=== PATIENT | male | born 1985 | race Caucasian/White ===

== ENCOUNTER 2019-09-30 09:58 | Day surgery (SDC) | payer OTHER ==
[~2019-09-30] VITALS: Ht 188 cm; Wt 118.7 kg
[~2019-09-30 09:58] MED LIST: None at this Time
[2019-09-30 10:27] VITALS: BP 141/94
[2019-09-30] MEDS ORDERED: LACTATED RINGERS 1,000 ML IV SCH ×2 (10:29→13:33)
[2019-09-30] MEDS ORDERED: GABAPENTIN 300 MG CAPSULE PO ONE (11:00)
[2019-09-30] MEDS ORDERED: ACETAMINOPHEN 500 MG TABLET PO ONE (11:00)
[2019-09-30] MEDS ORDERED: FENTANYL PF 250 MCG/5ML ONE (11:24)
[2019-09-30] MEDS ORDERED: MIDAZOLAM 1 MG/ML, 2ML ONE (11:24)
[2019-09-30] MEDS ORDERED: BUPIVACAINE/PF 0.5% INFIL ONE (12:44)
[2019-09-30] MEDS ORDERED: PROPOFOL 10 MG/ML, 20ML ONE (12:52)
[2019-09-30] MEDS ORDERED: CEFAZOLIN 1,000 MG ONE (12:52)
[2019-09-30] MEDS ORDERED: LIDOCAINE-MPF 2% ,5ML ONE (12:52)
[2019-09-30] MEDS ORDERED: DEXAMETHASONE 4 MG/ML, 1ML ONE (12:52)
[2019-09-30] MEDS ORDERED: KETOROLAC 30 MG/1 ML ONE (12:52)
[2019-09-30] MEDS ORDERED: ONDANSETRON 2MG/ML, 2ML ONE (12:52)
[2019-09-30] MEDS ORDERED: METOPROLOL 1 MG/ML, 5ML IV PRN (13:00)
[2019-09-30] MEDS ORDERED: PROMETHAZINE 25 MG/ML, 1ML IV PRN (13:00)
[2019-09-30] MEDS ORDERED: ALBUTEROL/IPRATROPIUM 2.5MG/0.5MG, 3 ML NPPB PRN (13:00)
[2019-09-30] MEDS ORDERED: HYDROmorphone 2 MG/ML, 1ML IVPush PRN (13:00)
[2019-09-30] MEDS ORDERED: MIDAZOLAM 1 MG/ML, 2ML IV PRN (13:00)
[2019-09-30] MEDS ORDERED: FENTANYL PF 100 MCG/2ML IV PRN (13:00)
[2019-09-30] MEDS ORDERED: OXYcodone 5 MG/5 ML ORAL.SOL UDC PO PRN (13:00)
[2019-09-30] MEDS ORDERED: MEPERIDINE/PF 25MG/ML,1ML IVPush PRN (13:00)
[2019-09-30] MEDS ORDERED: FENTANYL PF 100 MCG/2ML ONE (13:06)
[2019-09-30] MEDS ORDERED: ONDANSETRON 2MG/ML, 2ML IVPush PRN (14:00)
[2019-09-30] MEDS ORDERED: morphine SULFATE 10 MG/ML, 1ML IVPush PRN (14:00)
[2019-09-30] MEDS ORDERED: PROMETHAZINE 25 MG/ML, 1ML IM PRN (14:00)
== END 2019-09-30 15:20 | disposition home or self-care (01) ==
LOC: OUT 09:58
PROVIDERS: ATTEND Surgery
DX: K42.9 Umbilical hernia without obstruction or gangrene (principal); F15.90 Other stimulant use, unspecified, uncomplicated; G47.30 Sleep apnea, unspecified; Z72.89 Other problems related to lifestyle
CPT/HCPCS: 49560; 49568; C1781; J0690; J1100; J1885; J2250; J2405; J2704; J3010; J7120